=== PATIENT | male | born 1945 | race Hispanic/Latino ===

== ENCOUNTER 2020-01-05 09:07 | Inpatient (IN) | payer OTHER, MEDICARE ==
[~2020-01-05] VITALS: Ht 167.6 cm; Wt 77.1 kg
[2020-01-05 10:14] LABS: BASOPHILS % (AUTO) 0.2 % (0.0-5.0); EOSINOPHILS % (AUTO) 0.1 % (0.0-8.0); HEMATOCRIT 44.9 % (42-54); LYMPHOCYTES % (AUTO) 4.6 % (21.0-51.0); MEAN CORPUSCULAR HGB CONC 34.5 g/dL (32.0-36.0); MEAN CORPUSCULAR VOLUME 86.8 fL (79-99); MONOCYTES % (AUTO) 12.1 % (3.0-13.0); NEUTROPHILS % (AUTO) 81.8 % (40.0-77.0); PLATELET COUNT (AUTO) 166 K/uL (130-400); RED BLOOD CELL COUNT(AUTO) 5.17 MIL/uL (4.50-6.20); RED CELL DISTRIBUTION WIDTH 13.4 % (11.0-15.5); WHITE BLOOD COUNT (AUTO) 10.4 K/uL (4.8-10.8)
[2020-01-05 10:17] LABS: APPEARANCE,URINE Clear (CLEAR); BILIRUBIN,URINE Negative (NEGATIVE); COLOR,URINE Yellow (YELLOW); GLUCOSE, URINE (UA) Negative (NEGATIVE); KETONES,URINE Negative (NEGATIVE); LEUKOCYTE ESTERASE ,URINE Trace (NEGATIVE); NITRATE,URINE Negative (NEGATIVE); OCCULT BLOOD,URINE Moderate (NEGATIVE); PROTEIN,URINE Negative (NEGATIVE); UROBILINOGEN,URINE 0.2 mg/dL (0.2-1.0)
[2020-01-05 10:27] LABS: BACTERIA,URINE Rare /HPF (None Seen); SQUAMOUS EPITHELIAL CELL,UR Rare /HPF (0-2)
[2020-01-05 10:30] LABS: CREATININE 6.9 mg/dL (0.5-1.5); POTASSIUM 3.7 mmol/L (3.5-5.1)
[2020-01-05 10:36] LABS: BILIRUBIN,TOTAL 0.9 mg/dL (0.2-1.0); TOTAL PROTEIN, SERUM 7.3 g/dL (6.0-8.3)
[2020-01-05] MEDS ORDERED: CEFTRIAXONE SODIUM 1 GM ONE (11:03)
[2020-01-05] MEDS: SODIUM CHLORIDE 0.9% 1000ML 1,000 ML IV SCH (12:30)
[2020-01-05] MEDS ORDERED: HYDRALAZINE HCL 20 MG/ML VIAL IV PRN (12:30)
[2020-01-05] MEDS ORDERED: TAMSULOSIN HCL 0.4 MG CAP.ER.24H PO SCH (13:45)
[2020-01-05 13:53] LABS: CREATININE 4.2 mg/dL (0.5-1.5); POTASSIUM 3.6 mmol/L (3.5-5.1)
[2020-01-05 14:00] LABS: CREATININE,URINE RANDOM 130 mg/dL (30-135); SODIUM,URINE RANDOM 24 mmol/l (40-220)
[2020-01-05 14:06] LABS: MAGNESIUM 2.1 mg/dL (1.80-2.40); PHOSPHORUS 3.6 mg/dL (2.5-4.9); THYROID STIMULATING HORMONE 2.14 uIU/mL (0.36-3.74); URIC ACID 8.6 mg/dL (2.6-7.2)
[2020-01-05] MEDS ORDERED: POTASSIUM CHLORIDE 20 MEQ ERTAB PO SCH (15:00)
[2020-01-05] MEDS ORDERED: TAMSULOSIN HCL 0.4 MG CAP.ER.24H ONE (17:18)
[2020-01-05] MEDS ORDERED: POTASSIUM CHLORIDE 20 MEQ ERTAB PO ONE (17:19)
[2020-01-05 17:55] VITALS: BP 142/77
--- NOTE | 2020-01-05 18:00 | NUR ---
REPORT RECEIVED FROM ZACHERY SAHU (ED). PATIENT ADMITTED UNDER DR. WINTERS'S SERVICES FOR RENAL FAILURE AND URINARY RETENTION. CONSULTS FOR DR. ALEXA DRIVER AND DR. QUINTERO. PATIENT WAS SEEN BY DR. DRIVER IN ER AND (ER) DOCTOR SPOKE TO DR. QUINTERO REGARDING THE CASE. 16 FR PLACED WITH 2400ML OF OUTPUT. PATIENT STATES IS FEELING BETTER NOW.
[2020-01-05 20:00] VITALS: BP 145/77
[2020-01-06] VITALS: BP 136/79
[2020-01-06 03:56] VITALS: BP 134/73
[2020-01-06 06:54] LABS: CREATININE 1.3 mg/dL (0.5-1.5); MAGNESIUM 1.8 mg/dL (1.80-2.40); PHOSPHORUS 2.9 mg/dL (2.5-4.9)
[2020-01-06 08:00] VITALS: BP 139/83
[2020-01-06] MEDS ORDERED: ASPI-1197 PO (09:02)
[2020-01-06] MEDS: AMLODIPINE BESYLATE 5 MG TAB PO SCH ×2 (09:26→20:03)
[2020-01-06] MEDS: CEFTRIAXONE SODIUM 1 GM IVP SCH (09:26)
[2020-01-06 11:00] VITALS: BP 113/70
--- NOTE | 2020-01-06 11:00 | NUR ---
CONSULT PAGED DR. QUINTERO A REMINDER PATIENT WAS ADMITTED FOR URINARY RETENTION. NO ANSWER AT THIS TIME.
--- NOTE | 2020-01-06 13:50 | NUR ---
MD ISSAC QUINTERO ROUNDED, PATIENT TO FOLLOW UP IN OFFICE IN 2 WEEKS. PATIENT TO BE DISCHARGED WITH MCKINNON CATHETER IN PLACE. PATIENT TO USE LEG BAG DURING THE DAY AND MCKINNON BAG AT HS. PLEASE SUPPLY PATIENT WITH MCKINNON BAGS.
--- NOTE | 2020-01-06 15:13 | NUR ---
INITIAL SW met with patient. Patient lives with daughter, granddaughter and 3 small great grandchildren. Emergency contact is daughter, Rose Boyce, [phone]. No home services or DME. Patient is able to complete ADL's independently and drives. PCP is Dr. Arturo Doe. Pharmacy is [facility] in [place]. DCP is home. Addendum: 01/06/20 at 1515 by WALTER BOATENG SS Amended: Links added.
[2020-01-06 16:00] VITALS: BP 129/75
[2020-01-06 20:00] VITALS: BP 123/77
[2020-01-06] MEDS: SODIUM CHLORIDE 0.9% 1000ML 1,000 ML IV SCH (20:03)
--- NOTE | 2020-01-06 20:05 | NUR ---
MEDS SHIFT ASSESSMENT DONE, PLEASE REFER TO CHART. DUE MEDS ADMINISTERED, TOLERATED WELL. KEPT RESTED AND COMFORTABLE IN BED. CALL LIGHT WITHIN REACH. WILL MONITOR PT. Addendum: 01/06/20 at 2150 by BELINDA ROOT RN RN Amended: Links added.
--- NOTE | 2020-01-06 21:45 | NUR ---
ASSIST ASSISTED PT TO RESTROOM THEN BACK IN BED WITH MINIMAL ASSIST. PT ABLE TO HAVE A BM. NOTED HEMATURIA ON F/C URINE OUTPUT. NO BLOOD CLOTS NOTED. WILL MONITOR CLOSELY. Addendum: 01/06/20 at 2152 by BELINDA ROOT RN RN Amended: Links added.
[2020-01-07] VITALS (7 sets, daily range): BP systolic 125–140; BP diastolic 63–84
--- NOTE | 2020-01-07 01:57 | NUR ---
PAIN PT COMPLAINTS OF ABDOMINAL PAINS. MEDICATED WITH DILAUDID IV. KEPT RESTED AND COMFORTABLE. WILL RE-ASSESS PT. Addendum: 01/07/20 at 0158 by BELINDA ROOT RN RN ERROR ENTRY
--- NOTE | 2020-01-07 01:58 | NUR ---
ROUNDS PT FAIRLY ASLEEP WITH RESPIRATIONS EVEN AND UNLABORED. NO NOTED DISTRESS. KEPT UNDISTURBED FOR NOW. WILL MONITOR PT.
[2020-01-07] MEDS: SODIUM CHLORIDE 0.9% 1000ML 1,000 ML IV SCH ×3 (02:52→12:39)
--- NOTE | 2020-01-07 05:20 | NUR ---
ROUNDS PT RESTING WELL, NO CONCERNS VERBALIZED. PT'S URINE OUTPUT IS YELLOW AND IS CLEAR AT THIS TIME. KEPT COMFORTABLE IN BED. FOR MORE CARE.
[2020-01-07 06:09] LABS: POTASSIUM 3.7 mmol/L (3.5-5.1)
[2020-01-07] MEDS: AMLODIPINE BESYLATE 5 MG TAB PO SCH ×2 (08:08→20:13)
[2020-01-07] MEDS: CEFTRIAXONE SODIUM 1 GM IVP SCH (08:08)
[2020-01-07] MEDS: TAMSULOSIN HCL 0.4 MG CAP.ER.24H PO SCH (08:08)
[2020-01-07] MEDS ORDERED: POTASSIUM CHLORIDE 20 MEQ ERTAB PO SCH (09:45)
--- NOTE | 2020-01-07 10:15 | NUR ---
Notified Elie Cuenca NP and Nash Vo MD of urine culture results of gram negative rods. Pending sensitivity for antibiotic recommendation from physician.
[2020-01-07 10:54] LABS: BASOPHILS % (AUTO) 0.7 % (0.0-5.0); HEMATOCRIT 44.2 % (42-54); MEAN CORPUSCULAR HEMOGLOBIN 29.7 pg (27.0-33.0); MEAN CORPUSCULAR HGB CONC 32.4 g/dL (32.0-36.0); MEAN CORPUSCULAR VOLUME 91.7 fL (79-99); MONOCYTES % (AUTO) 13.1 % (3.0-13.0); NEUTROPHILS % (AUTO) 62.7 % (40.0-77.0); PLATELET COUNT (AUTO) 222 K/uL (130-400); RED BLOOD CELL COUNT(AUTO) 4.82 MIL/uL (4.50-6.20); RED CELL DISTRIBUTION WIDTH 13.9 % (11.0-15.5); WHITE BLOOD COUNT (AUTO) 6.9 K/uL (4.8-10.8)
--- NOTE | 2020-01-07 15:19 | NUR ---
RD NOTIFICATION - TRIGGER Pt admitted with Renal Failure, Urinary retention. Pt tolerating Renal Non Dialysis diet order with no report of GI distress. Pt reports Great appetite at 100%. Serum Ca level at 8.1, Alb 3.0, all other lab values WNL. Recommend Heart Healthy Diet Order RD to continue to monitor. Addendum: 01/07/20 at [address] Amended: Links added.
[2020-01-08] MEDS ORDERED: ATOR10TA69 PO (00:01)
[2020-01-08] MEDS ORDERED: LISI40TA4 PO (00:01)
[2020-01-08] MEDS ORDERED: AMLO-258 PO (00:01)
[2020-01-08] MEDS ORDERED: ATOR10 PO (00:01)
[2020-01-08] MEDS ORDERED: TAMS-1 PO (00:01)
--- NOTE | 2020-01-08 00:16 | NUR ---
Sugar CESARP returned the call within a few minutes, had been paged via answering service. Informed him of patient's elevated temperature of 100.1. Orders received to have blood cultures done, and order for Tylenol prn for elevated temp of 101. Patient made aware of new orders, ice packs placed in use. Patient verbalized understanding.
[2020-01-08] MEDS: SODIUM CHLORIDE 0.9% 1000ML 1,000 ML IV SCH ×3 (00:21→07:59)
[2020-01-08] MEDS ORDERED: ACETAMINOPHEN 325 MG TAB PO PRN (00:30)
[2020-01-08 03:42] VITALS: BP 146/85
[2020-01-08 05:54] LABS: BASOPHILS % (AUTO) 0.5 % (0.0-5.0); EOSINOPHILS % (AUTO) 6.8 % (0.0-8.0); HEMATOCRIT 42.4 % (42-54); LYMPHOCYTES % (AUTO) 13.2 % (21.0-51.0); MEAN CORPUSCULAR HEMOGLOBIN 29.3 pg (27.0-33.0); MEAN CORPUSCULAR HGB CONC 33.5 g/dL (32.0-36.0); MEAN CORPUSCULAR VOLUME 87.6 fL (79-99); MONOCYTES % (AUTO) 13.2 % (3.0-13.0); NEUTROPHILS % (AUTO) 64.8 % (40.0-77.0); PLATELET COUNT (AUTO) 214 K/uL (130-400); RED BLOOD CELL COUNT(AUTO) 4.84 MIL/uL (4.50-6.20); RED CELL DISTRIBUTION WIDTH 13.2 % (11.0-15.5); WHITE BLOOD COUNT (AUTO) 7.4 K/uL (4.8-10.8)
[2020-01-08 06:22] LABS: CREATININE 0.9 mg/dL (0.5-1.5); POTASSIUM 3.5 mmol/L (3.5-5.1)
[2020-01-08 07:34] VITALS: BP 145/77
[2020-01-08] MEDS: CEFTRIAXONE SODIUM 1 GM IVP SCH (07:58)
[2020-01-08] MEDS: TAMSULOSIN HCL 0.4 MG CAP.ER.24H PO SCH (07:58)
[2020-01-08] MEDS: AMLODIPINE BESYLATE 5 MG TAB PO SCH ×2 (07:58→20:16)
[2020-01-08 10:44] VITALS: BP 135/83
[2020-01-08 15:45] VITALS: BP 139/83
[2020-01-08 19:00] VITALS: BP 119/81
[2020-01-08 23:00] VITALS: BP 134/77
[2020-01-09 03:00] VITALS: BP 138/74
[2020-01-09 05:12] LABS: BASOPHILS % (AUTO) 0.3 % (0.0-5.0); EOSINOPHILS % (AUTO) 3.3 % (0.0-8.0); HEMATOCRIT 44.2 % (42-54); LYMPHOCYTES % (AUTO) 13.3 % (21.0-51.0); MEAN CORPUSCULAR HEMOGLOBIN 29.6 pg (27.0-33.0); MEAN CORPUSCULAR HGB CONC 33.9 g/dL (32.0-36.0); MEAN CORPUSCULAR VOLUME 87.4 fL (79-99); MONOCYTES % (AUTO) 13.3 % (3.0-13.0); NEUTROPHILS % (AUTO) 68.7 % (40.0-77.0); PLATELET COUNT (AUTO) 223 K/uL (130-400); RED BLOOD CELL COUNT(AUTO) 5.06 MIL/uL (4.50-6.20); RED CELL DISTRIBUTION WIDTH 13.3 % (11.0-15.5)
[2020-01-09 05:23] LABS: CREATININE 0.9 mg/dL (0.5-1.5); POTASSIUM 3.7 mmol/L (3.5-5.1)
[2020-01-09 07:40] VITALS: BP 123/78
[2020-01-09] MEDS: CEFTRIAXONE SODIUM 1 GM IVP SCH (09:23)
[2020-01-09] MEDS: TAMSULOSIN HCL 0.4 MG CAP.ER.24H PO SCH (09:23)
[2020-01-09] MEDS: AMLODIPINE BESYLATE 5 MG TAB PO SCH ×2 (09:23→20:56)
[2020-01-09 11:13] VITALS: BP 122/90
--- NOTE | 2020-01-09 13:36 | NUR ---
MIKE WILLIAM RECOMMMENDATIONS, EXPECT DC IF CLEARED Addendum: 01/09/20 at 1338 by JAMARI REARDON RN CM Amended: Links added.
[2020-01-09] MEDS: ZOSYN 3.375GM+NS 50ML 50 ML IV SCH ×2 (15:06→20:56)
[2020-01-09 15:23] VITALS: BP 125/77
[2020-01-09 21:19] VITALS: BP 147/79
[2020-01-10 03:40] LABS: BASOPHILS % (AUTO) 0.6 % (0.0-5.0); EOSINOPHILS % (AUTO) 4.7 % (0.0-8.0); HEMATOCRIT 43.1 % (42-54); LYMPHOCYTES % (AUTO) 15.6 % (21.0-51.0); MEAN CORPUSCULAR HEMOGLOBIN 29.3 pg (27.0-33.0); MEAN CORPUSCULAR HGB CONC 33.4 g/dL (32.0-36.0); MEAN CORPUSCULAR VOLUME 87.6 fL (79-99); MONOCYTES % (AUTO) 12.5 % (3.0-13.0); NEUTROPHILS % (AUTO) 64.5 % (40.0-77.0); PLATELET COUNT (AUTO) 246 K/uL (130-400); RED BLOOD CELL COUNT(AUTO) 4.92 MIL/uL (4.50-6.20); WHITE BLOOD COUNT (AUTO) 5.1 K/uL (4.8-10.8)
[2020-01-10 03:58] LABS: CREATININE 0.9 mg/dL (0.5-1.5); POTASSIUM 3.5 mmol/L (3.5-5.1)
[2020-01-10 04:00] VITALS: BP 124/72
[2020-01-10] MEDS: ZOSYN 3.375GM+NS 50ML 50 ML IV SCH ×2 (06:10→14:01)
[2020-01-10 07:39] VITALS: BP 133/75
[2020-01-10] MEDS: TAMSULOSIN HCL 0.4 MG CAP.ER.24H PO SCH (10:12)
[2020-01-10] MEDS: AMLODIPINE BESYLATE 5 MG TAB PO SCH (10:12)
[2020-01-10 10:48] VITALS: BP 96/67
--- NOTE | 2020-01-10 14:06 | NUR ---
DR. MARTINEZ IN TO SEE PT. STATES PT. CAN BE DISCHARGED, HAS WRITTEN RX. FOR ANTIBIOTICS.
--- NOTE | 2020-01-10 16:34 | NUR ---
DISCHARGED NOW USING TEACH BACK. RX. FOR LEVOFLOXIN AND AMOXICILLIN GIVEN. DISCHARGED WITH MCKINNON CATH IN PLACE AND GIVEN AND DEMONSTRATED USE OF LEG BAG. GIVEN A LG. DRAINAGE BAG AND [address] QUINTERO. FAMILY MEMBER IN ROOM AND ACKNOWLEDGED INST. STATES DAUGHTER IS A HEALTH PROVIDER AND ALSO KNOWS HOW TO CARE FOR FOLEYS. SALINE LOCK REMOVED WHEELED DOWN STAIRS FOR DC. NO C/O OR CONCERNS VOICED.APPTS. FOR FOLLOW UP CARE ALSO GIVEN. UNDERSTANDING OF ALL INST. VO DENA.DENA
== END 2020-01-10 17:00 | disposition home or self-care (01) | DRG 726 ==
LOC: EDH 09:07 → EDHIP 12:06 → 3AH 18:02
PROVIDERS: ADMIT Internal Medicine; ATTEND Internal Medicine
DX: N40.1 Benign prostatic hyperplasia with lower urinary tract symptoms (principal); N17.9 Acute kidney failure, unspecified; N39.0 Urinary tract infection, site not specified; N13.8 Other obstructive and reflux uropathy; N32.0 Bladder-neck obstruction; I10 Essential (primary) hypertension; E86.9 Volume depletion, unspecified; E78.00 Pure hypercholesterolemia, unspecified; H54.61 Unqualified visual loss, right eye, normal vision left eye; N41.9 Inflammatory disease of prostate, unspecified; R33.8 Other retention of urine; E87.8 Other disorders of electrolyte and fluid balance, not elsewhere classified; Z60.2 Problems related to living alone; B96.1 Klebsiella pneumoniae [K. pneumoniae] as the cause of diseases classified elsewhere; R53.81 Other malaise
CPT/HCPCS: 36415; 71046; 74176; 76770; 80048; 80053; 81001; 82150; 82570; 83690; 83735; 84100; 84145; 84156; 84300; 84443; 84484; 84550; 85025; 87040; 87077; 87088; 87186; 93005; G0378; J0696; J2543; J7030

== ENCOUNTER 2020-08-08 14:43 | Inpatient (IN) | payer OTHER, MEDICARE ==
[~2020-08-08] VITALS: Ht 167.6 cm; Wt 69.4 kg
[~2020-08-08 14:43] MED LIST: AMLO-258 PO; ASPI-1197 PO; ATOR10 PO; ATOR10TA69 PO; LISI40TA9 PO; TAMS-1 PO
[2020-08-08 15:14] LABS: ABG BASE EXCESS -10.6 mmol/L (-2.0-3.0); ABG OXYGEN SATURATION 84.3 % (95.0-99.0); ABG PCO2 21 mmHg (35-48)
[2020-08-08 15:18] LABS: BASOPHILS % (AUTO) 0.4 % (0.0-5.0); EOSINOPHILS % (AUTO) 0.1 % (0.0-8.0); HEMATOCRIT 49.6 % (42-54); MEAN CORPUSCULAR HEMOGLOBIN 28.9 pg (27.0-33.0); MEAN CORPUSCULAR HGB CONC 34.3 g/dL (32.0-36.0); MEAN CORPUSCULAR VOLUME 84.4 fL (79-99); MONOCYTES % (AUTO) 6.5 % (3.0-13.0); NEUTROPHILS % (AUTO) 85.8 % (40.0-77.0); PLATELET COUNT (AUTO) 348 K/uL (130-400); RED BLOOD CELL COUNT(AUTO) 5.88 MIL/uL (4.50-6.20); RED CELL DISTRIBUTION WIDTH 13.5 % (11.0-15.5); WHITE BLOOD COUNT (AUTO) 11.9 K/uL (4.8-10.8)
[2020-08-08 15:29] LABS: INR 1.41 (0.85-1.15); PROTHROMBIN TIME 14.6 SEC (9.6-11.6)
[2020-08-08 15:30] LABS: PARTIAL THROMBOPLASTIN TIME 27.1 SEC (26.3-35.5)
[2020-08-08 15:45] LABS: ALANINE AMINOTRANSFERASE 54 U/L (12-78); ALBUMIN 2.7 g/dL (3.5-5.0); ASPARTATE AMINOTRANSFERASE 46 U/L (10-37); BILIRUBIN,TOTAL 1.4 mg/dL (0.2-1.0); CARBON DIOXIDE 14 mmol/L (21-32); CHLORIDE 100 mmol/L (101-111); CREATINE KINASE, TOTAL 138 U/L (21-232); GLOMERULAR FILTR. RATE CALC 22 mL/min (>60); GLUCOSE,RANDOM 155 mg/dL (70-105); MYOGLOBIN 588 ng/mL (10-92); POTASSIUM 3.6 mmol/L (3.5-5.1); SODIUM SERUM 137 mmol/L (136-145); TOTAL PROTEIN, SERUM 8.5 g/dL (6.0-8.3); TROPONIN I < 0.04 ng/mL (0.00-0.06)
[2020-08-08 15:49] LABS: UREA NITROGEN, BLOOD 141 mg/dL (7-18)
[2020-08-08] MEDS ORDERED: AZITHROMYCIN 500MG+NS 250ML 250 ML IV ONE (16:03)
[2020-08-08] MEDS ORDERED: DEXAMETHASONE SOD PHOSPHATE 10MG/ML 1ML VIAL ONE (16:03)
[2020-08-08] MEDS ORDERED: CEFTRIAXONE 1G VIAL ONE (16:03)
[2020-08-08] MEDS ORDERED: DEXAMETHASONE SOD PHOSPHATE 4 MG/ML 1ML VIAL IVP SCH (17:45)
[2020-08-08] MEDS ORDERED: ERGOCALCIFEROL (VITAMIN D2) 50,000 UNIT CAPSULE PO ONE (17:45)
[2020-08-08] MEDS ORDERED: DOXYCYCLINE 100MG+NS 250ML IV SCH (17:45)
[2020-08-08] MEDS: CEFTRIAXONE 1G VIAL IVP SCH (17:45)
[2020-08-08] MEDS ORDERED: ERGOCALCIFEROL (VITAMIN D2) 50,000 UNIT CAPSULE ONE (18:15)
[2020-08-08] MEDS ORDERED: DOXYCYCLINE 100MG+NS 250ML 250 ML IV ONE (18:16)
[2020-08-08] MEDS ORDERED: ACETYLCYSTEINE 600 MG CAPSULE ONE (19:48)
[2020-08-08 20:27] LABS: APPEARANCE,URINE Clear (CLEAR); BILIRUBIN,URINE Negative (NEGATIVE); COLOR,URINE Yellow (YELLOW); GLUCOSE, URINE (UA) Negative (NEGATIVE); KETONES,URINE 15 mg/dL (NEGATIVE); LEUKOCYTE ESTERASE ,URINE Negative (NEGATIVE); NITRATE,URINE Negative (NEGATIVE); OCCULT BLOOD,URINE Small (NEGATIVE); PROTEIN,URINE POS 1+ mg/dL (NEGATIVE)
[2020-08-08 20:42] LABS: BACTERIA,URINE Few /HPF (None Seen); MUCUS,URINE Moderate LPF (None Seen); SQUAMOUS EPITHELIAL CELL,UR Few /HPF (0-2); WBC,URINE 0-1 /HPF (0-1)
[2020-08-08] MEDS ORDERED: 0.9% NACL 250ML 250 ML IV ONE (22:46)
[2020-08-09 05:03] LABS: BASOPHILS % (AUTO) 0.3 % (0.0-5.0); HEMATOCRIT 42.2 % (42-54); LYMPHOCYTES % (AUTO) 2.1 % (21.0-51.0); MEAN CORPUSCULAR HEMOGLOBIN 28.8 pg (27.0-33.0); MEAN CORPUSCULAR HGB CONC 34.4 g/dL (32.0-36.0); MEAN CORPUSCULAR VOLUME 83.9 fL (79-99); MONOCYTES % (AUTO) 3.3 % (3.0-13.0); NEUTROPHILS % (AUTO) 91.7 % (40.0-77.0); PLATELET COUNT (AUTO) 289 K/uL (130-400); RED BLOOD CELL COUNT(AUTO) 5.03 MIL/uL (4.50-6.20); RED CELL DISTRIBUTION WIDTH 13.6 % (11.0-15.5); WHITE BLOOD COUNT (AUTO) 7.6 K/uL (4.8-10.8)
[2020-08-09 05:25] LABS: ALBUMIN 2.3 g/dL (3.5-5.0); BILIRUBIN,TOTAL 0.9 mg/dL (0.2-1.0); CREATININE 1.9 mg/dL (0.5-1.5); CRP QUANTITATIVE 169.5 mg/L (0.00-9.0); POTASSIUM 3.7 mmol/L (3.5-5.1); TOTAL PROTEIN, SERUM 7.4 g/dL (6.0-8.3)
[2020-08-09] MEDS: CEFTRIAXONE 1G VIAL IVP SCH ×2 (05:45→16:44)
[2020-08-09] MEDS: DOXYCYCLINE 100MG+NS 250ML 250 ML IV SCH ×2 (06:00→16:45)
[2020-08-09] MEDS ORDERED: LACTATED RINGERS 1000ML 1,000 ML IV SCH (08:15)
[2020-08-09] MEDS ORDERED: ACETYLCYSTEINE 600 MG CAPSULE ONE (08:23)
[2020-08-09] MEDS ORDERED: ASCORBIC ACID 500 MG TAB ONE (08:23)
[2020-08-09] MEDS ORDERED: ENOXAPARIN SODIUM 40 MG/0.4 ML SYRINGE SQ ONE (08:24)
[2020-08-09] MEDS ORDERED: LACTATED RINGERS 1000ML 1,000 ML IV ONE (08:24)
[2020-08-09] MEDS ORDERED: FAMOTIDINE 20MG VIAL IV ONE (08:24)
[2020-08-09] MEDS: ACETYLCYSTEINE 600 MG CAPSULE PO SCH ×2 (08:24→09:00)
[2020-08-09] MEDS ORDERED: ZINC SULFATE 220 CAPSULE ONE (08:24)
[2020-08-09] MEDS ORDERED: ENOXAPARIN SODIUM 40 MG/0.4 ML SYRINGE SQ SCH (09:00)
[2020-08-09] MEDS: FAMOTIDINE 20MG VIAL IV SCH (09:00)
[2020-08-09] MEDS: ASCORBIC ACID 500 MG TAB PO SCH (09:00)
[2020-08-09] MEDS: ZINC SULFATE 220 CAPSULE PO SCH (09:00)
[2020-08-09] MEDS: ENOXAPARIN SODIUM 40 MG/0.4 ML SYRINGE SQ SCH ×2 (09:00→20:48)
[2020-08-09 13:00] VITALS: BP 164/81
[2020-08-09] MEDS ORDERED: OXYB10TA30 PO (14:06)
[2020-08-09] MEDS ORDERED: METO50TA18 PO (14:09)
[2020-08-09 20:00] VITALS: BP 115/63
[2020-08-09] MEDS ORDERED: COMPOUND IV REFRIGERATED 1 EACH IVSOLN MISC PRN (20:00)
[2020-08-09] MEDS: DEXAMETHASONE SOD PHOSPHATE 4 MG/ML 1ML VIAL IVP SCH (20:47)
[2020-08-09] MEDS ORDERED: LORAZEPAM 2 MG/ML 1 ML VIAL IVP PRN (21:30)
[2020-08-09 23:49] VITALS: BP 119/54
[2020-08-10 04:42] VITALS: BP 128/73
[2020-08-10 05:02] LABS: BASOPHILS % (AUTO) 0.3 % (0.0-5.0); HEMATOCRIT 43.6 % (42-54); LYMPHOCYTES % (AUTO) 1.9 % (21.0-51.0); MEAN CORPUSCULAR HEMOGLOBIN 28.6 pg (27.0-33.0); MEAN CORPUSCULAR HGB CONC 33.5 g/dL (32.0-36.0); MEAN CORPUSCULAR VOLUME 85.3 fL (79-99); MONOCYTES % (AUTO) 2.7 % (3.0-13.0); NEUTROPHILS % (AUTO) 90.9 % (40.0-77.0); PLATELET COUNT (AUTO) 327 K/uL (130-400); RED BLOOD CELL COUNT(AUTO) 5.11 MIL/uL (4.50-6.20); RED CELL DISTRIBUTION WIDTH 13.8 % (11.0-15.5); WHITE BLOOD COUNT (AUTO) 10.6 K/uL (4.8-10.8)
[2020-08-10] MEDS: DOXYCYCLINE 100MG+NS 250ML 250 ML IV SCH ×2 (05:13→17:41)
[2020-08-10] MEDS: CEFTRIAXONE 1G VIAL IVP SCH ×2 (05:13→17:40)
[2020-08-10 05:20] LABS: ALBUMIN 2.2 g/dL (3.5-5.0); BILIRUBIN,TOTAL 0.7 mg/dL (0.2-1.0); CREATININE 1.4 mg/dL (0.5-1.5); CRP QUANTITATIVE 87.8 mg/L (0.00-9.0); MAGNESIUM 2.7 mg/dL (1.80-2.40); PHOSPHORUS 2.8 mg/dL (2.5-4.9); POTASSIUM 3.7 mmol/L (3.5-5.1); TOTAL PROTEIN, SERUM 7.2 g/dL (6.0-8.3)
[2020-08-10] MEDS: FAMOTIDINE 20MG VIAL IV SCH (08:53)
[2020-08-10] MEDS: CLONAZEPAM 1MG TAB PO SCH ×2 (08:55→20:06)
[2020-08-10] MEDS: DEXAMETHASONE SOD PHOSPHATE 4 MG/ML 1ML VIAL IVP SCH ×2 (08:55→20:06)
[2020-08-10] MEDS: ENOXAPARIN SODIUM 40 MG/0.4 ML SYRINGE SQ SCH ×2 (08:56→20:09)
[2020-08-10] MEDS: ASCORBIC ACID 500 MG TAB PO SCH (08:56)
[2020-08-10] MEDS: ZINC SULFATE 220 CAPSULE PO SCH (08:56)
[2020-08-10] MEDS: M.V.I. IV [ADULT] 10 ML, FOLIC ACID 1 MG, THIAMINE HCL 100 MG in 0.9%NACL 1000ML 1,000 ML IV SCH (13:00)
[2020-08-10 16:00] VITALS: BP 125/75
[2020-08-10] MEDS: ATORVASTATIN 10 MG TABLET PO SCH (20:06)
[2020-08-10] MEDS: OXYBUTYNIN 5 MG TAB.SR.24H PO SCH (20:09)
[2020-08-10 22:46] VITALS: BP 125/73
[2020-08-11] VITALS (7 sets, daily range): BP systolic 124–137; BP diastolic 74–88
[2020-08-11 05:06] LABS: BASOPHILS % (AUTO) 0.4 % (0.0-5.0); HEMATOCRIT 44.4 % (42-54); MEAN CORPUSCULAR HEMOGLOBIN 28.9 pg (27.0-33.0); MEAN CORPUSCULAR HGB CONC 33.6 g/dL (32.0-36.0); MONOCYTES % (AUTO) 4.7 % (3.0-13.0); NEUTROPHILS % (AUTO) 89.3 % (40.0-77.0); PLATELET COUNT (AUTO) 300 K/uL (130-400); RED BLOOD CELL COUNT(AUTO) 5.16 MIL/uL (4.50-6.20); RED CELL DISTRIBUTION WIDTH 13.8 % (11.0-15.5); WHITE BLOOD COUNT (AUTO) 10.6 K/uL (4.8-10.8)
[2020-08-11] MEDS: DOXYCYCLINE 100MG+NS 250ML 250 ML IV SCH ×2 (05:29→17:42)
[2020-08-11] MEDS: CEFTRIAXONE 1G VIAL IVP SCH ×2 (05:30→17:38)
[2020-08-11 05:51] LABS: ALBUMIN 2.2 g/dL (3.5-5.0); BILIRUBIN,TOTAL 0.5 mg/dL (0.2-1.0); CREATININE 1.2 mg/dL (0.5-1.5); CRP QUANTITATIVE 41.6 mg/L (0.00-9.0); POTASSIUM 4.1 mmol/L (3.5-5.1); TOTAL PROTEIN, SERUM 6.7 g/dL (6.0-8.3)
[2020-08-11] MEDS: M.V.I. IV [ADULT] 10 ML, FOLIC ACID 1 MG, THIAMINE HCL 100 MG in 0.9%NACL 1000ML 1,000 ML IV SCH (09:00)
[2020-08-11] MEDS: FAMOTIDINE 20MG VIAL IV SCH (09:23)
[2020-08-11] MEDS: DEXAMETHASONE SOD PHOSPHATE 4 MG/ML 1ML VIAL IVP SCH ×2 (09:24→20:32)
[2020-08-11] MEDS: TAMSULOSIN HCL 0.4 MG CAP.ER.24H PO SCH (09:26)
[2020-08-11] MEDS: ZINC SULFATE 220 CAPSULE PO SCH (09:26)
[2020-08-11] MEDS: CLONAZEPAM 1MG TAB PO SCH ×2 (09:26→20:31)
[2020-08-11] MEDS: ENOXAPARIN SODIUM 40 MG/0.4 ML SYRINGE SQ SCH ×2 (09:26→20:52)
[2020-08-11] MEDS: ASCORBIC ACID 500 MG TAB PO SCH (09:27)
[2020-08-11] MEDS ORDERED: PHARMACY COMMUNICATION**REMDESIVIR ORDER MISC SCH (15:00)
[2020-08-11] MEDS ORDERED: COMPOUND IV REFRIGERATED 1 EACH IVSOLN MISC PRN (17:30)
[2020-08-11 17:43] LABS: BASOPHILS % (AUTO) 0.3 % (0.0-5.0); HEMATOCRIT 47.3 % (42-54); MEAN CORPUSCULAR HEMOGLOBIN 27.9 pg (27.0-33.0); MEAN CORPUSCULAR HGB CONC 32.8 g/dL (32.0-36.0); MEAN CORPUSCULAR VOLUME 85.2 fL (79-99); MONOCYTES % (AUTO) 5.2 % (3.0-13.0); PLATELET COUNT (AUTO) 320 K/uL (130-400); RED BLOOD CELL COUNT(AUTO) 5.55 MIL/uL (4.50-6.20); RED CELL DISTRIBUTION WIDTH 13.9 % (11.0-15.5); WHITE BLOOD COUNT (AUTO) 9.5 K/uL (4.8-10.8)
[2020-08-11] MEDS ORDERED: REMDESIVIR (EUA) 520 200 MG in 0.9% NACL 250ML 250 ML IV SCH (18:00)
[2020-08-11] MEDS ORDERED: 0.9% NACL 250ML 250 ML IV ONE (20:26)
[2020-08-11] MEDS: ATORVASTATIN 10 MG TABLET PO SCH (20:32)
[2020-08-11] MEDS: OXYBUTYNIN 5 MG TAB.SR.24H PO SCH (20:33)
[2020-08-12] VITALS: BP 132/82
[2020-08-12 04:00] VITALS: BP 123/71
[2020-08-12 04:58] LABS: HEMATOCRIT 44.8 % (42-54); MEAN CORPUSCULAR HEMOGLOBIN 28.4 pg (27.0-33.0); MEAN CORPUSCULAR HGB CONC 32.8 g/dL (32.0-36.0); MEAN CORPUSCULAR VOLUME 86.5 fL (79-99); RED BLOOD CELL COUNT(AUTO) 5.18 MIL/uL (4.50-6.20); RED CELL DISTRIBUTION WIDTH 13.9 % (11.0-15.5); WHITE BLOOD COUNT (AUTO) 9.2 K/uL (4.8-10.8)
[2020-08-12 05:12] LABS: POTASSIUM 4.2 mmol/L (3.5-5.1)
[2020-08-12] MEDS: PHARMACY COMMUNICATION MISC SCH (06:00)
[2020-08-12] MEDS: DOXYCYCLINE 100MG+NS 250ML 250 ML IV SCH ×2 (06:33→17:15)
[2020-08-12] MEDS: CEFTRIAXONE 1G VIAL IVP SCH ×2 (06:33→17:15)
[2020-08-12 08:00] VITALS: BP 149/86
[2020-08-12] MEDS: CLONAZEPAM 1MG TAB PO SCH ×2 (08:11→21:14)
[2020-08-12] MEDS: TAMSULOSIN HCL 0.4 MG CAP.ER.24H PO SCH (08:12)
[2020-08-12] MEDS: ZINC SULFATE 220 CAPSULE PO SCH (08:12)
[2020-08-12] MEDS: ASCORBIC ACID 500 MG TAB PO SCH (08:12)
[2020-08-12] MEDS: DEXAMETHASONE SOD PHOSPHATE 4 MG/ML 1ML VIAL IVP SCH ×2 (08:13→21:15)
[2020-08-12] MEDS: ENOXAPARIN SODIUM 40 MG/0.4 ML SYRINGE SQ SCH ×2 (08:13→21:18)
[2020-08-12] MEDS: FAMOTIDINE 20MG VIAL IV SCH (08:13)
[2020-08-12] MEDS: M.V.I. IV [ADULT] 10 ML, FOLIC ACID 1 MG, THIAMINE HCL 100 MG in 0.9%NACL 1000ML 1,000 ML IV SCH (10:03)
[2020-08-12 12:00] VITALS: BP 150/83
[2020-08-12 18:36] VITALS: BP 150/89
[2020-08-12 19:00] VITALS: BP 155/89
[2020-08-12] MEDS ORDERED: DEXTROSE 5%-WATER 1,000 ML IV SCH (20:15)
[2020-08-12] MEDS: ATORVASTATIN 10 MG TABLET PO SCH (21:14)
[2020-08-12] MEDS: OXYBUTYNIN 5 MG TAB.SR.24H PO SCH (21:14)
[2020-08-12] MEDS: REMDESIVIR (EUA) 520 100 MG in 0.9% NACL 250ML 250 ML IV SCH (21:15)
[2020-08-13] VITALS: BP 161/86
[2020-08-13 04:00] VITALS: BP_SYST 124; BP_SYST 136; BP_SYST 97; BP_DIAS 55; BP_DIAS 76; BP_DIAS 77
[2020-08-13 06:12] LABS: BASOPHILS % (AUTO) 0.4 % (0.0-5.0); HEMATOCRIT 48.4 % (42-54); LYMPHOCYTES % (AUTO) 2.4 % (21.0-51.0); MEAN CORPUSCULAR HEMOGLOBIN 28.5 pg (27.0-33.0); MEAN CORPUSCULAR HGB CONC 32.6 g/dL (32.0-36.0); MEAN CORPUSCULAR VOLUME 87.2 fL (79-99); MONOCYTES % (AUTO) 4.5 % (3.0-13.0); NEUTROPHILS % (AUTO) 87.1 % (40.0-77.0); PLATELET COUNT (AUTO) 266 K/uL (130-400); RED BLOOD CELL COUNT(AUTO) 5.55 MIL/uL (4.50-6.20); RED CELL DISTRIBUTION WIDTH 14.1 % (11.0-15.5)
[2020-08-13] MEDS: DOXYCYCLINE 100MG+NS 250ML 250 ML IV SCH ×2 (06:16→16:18)
[2020-08-13] MEDS: CEFTRIAXONE 1G VIAL IVP SCH ×2 (06:16→16:18)
[2020-08-13] MEDS: PHARMACY COMMUNICATION MISC SCH (06:17)
[2020-08-13 06:41] LABS: ALBUMIN 2.2 g/dL (3.5-5.0); BILIRUBIN,TOTAL 0.5 mg/dL (0.2-1.0); CRP QUANTITATIVE 28.7 mg/L (0.00-9.0); POTASSIUM 4.4 mmol/L (3.5-5.1); TOTAL PROTEIN, SERUM 6.4 g/dL (6.0-8.3)
[2020-08-13 08:00] VITALS: BP 132/80
[2020-08-13] MEDS: CLONAZEPAM 1MG TAB PO SCH ×2 (09:16→21:27)
[2020-08-13] MEDS: ASCORBIC ACID 500 MG TAB PO SCH (09:16)
[2020-08-13] MEDS: TAMSULOSIN HCL 0.4 MG CAP.ER.24H PO SCH (09:16)
[2020-08-13] MEDS: FAMOTIDINE 20MG VIAL IV SCH (09:16)
[2020-08-13] MEDS: DEXAMETHASONE SOD PHOSPHATE 4 MG/ML 1ML VIAL IVP SCH ×2 (09:17→21:46)
[2020-08-13] MEDS: ENOXAPARIN SODIUM 40 MG/0.4 ML SYRINGE SQ SCH ×2 (09:17→21:48)
[2020-08-13] MEDS: ZINC SULFATE 220 CAPSULE PO SCH (09:17)
[2020-08-13] MEDS: M.V.I. IV [ADULT] 10 ML, FOLIC ACID 1 MG, THIAMINE HCL 100 MG in 0.9%NACL 1000ML 1,000 ML IV SCH (10:15)
[2020-08-13 14:35] VITALS: BP 135/76
[2020-08-13] MEDS: LACTULOSE 20 GM/30 ML UDCUP PO PRN (18:19)
[2020-08-13 20:00] VITALS: BP 140/76
[2020-08-13] MEDS: OXYBUTYNIN 5 MG TAB.SR.24H PO SCH (21:25)
[2020-08-13] MEDS: ATORVASTATIN 10 MG TABLET PO SCH (21:27)
[2020-08-13] MEDS: REMDESIVIR (EUA) 520 100 MG in 0.9% NACL 250ML 250 ML IV SCH (21:49)
[2020-08-14 00:33] VITALS: BP 150/59
[2020-08-14 04:09] VITALS: BP 124/91
[2020-08-14 05:29] LABS: BASOPHILS % (AUTO) 0.3 % (0.0-5.0); HEMATOCRIT 45.5 % (42-54); LYMPHOCYTES % (AUTO) 1.4 % (21.0-51.0); MEAN CORPUSCULAR HEMOGLOBIN 28.8 pg (27.0-33.0); MEAN CORPUSCULAR HGB CONC 33.4 g/dL (32.0-36.0); MEAN CORPUSCULAR VOLUME 86.2 fL (79-99); MONOCYTES % (AUTO) 3.2 % (3.0-13.0); NEUTROPHILS % (AUTO) 90.7 % (40.0-77.0); PLATELET COUNT (AUTO) 238 K/uL (130-400); RED BLOOD CELL COUNT(AUTO) 5.28 MIL/uL (4.50-6.20); RED CELL DISTRIBUTION WIDTH 13.7 % (11.0-15.5); WHITE BLOOD COUNT (AUTO) 9.4 K/uL (4.8-10.8)
[2020-08-14 05:51] LABS: ALBUMIN 2.1 g/dL (3.5-5.0); BILIRUBIN,TOTAL 0.7 mg/dL (0.2-1.0); CREATININE 0.9 mg/dL (0.5-1.5); CRP QUANTITATIVE 26.5 mg/L (0.00-9.0); POTASSIUM 3.8 mmol/L (3.5-5.1); TOTAL PROTEIN, SERUM 6.3 g/dL (6.0-8.3)
[2020-08-14] MEDS: CEFTRIAXONE 1G VIAL IVP SCH ×2 (06:00→17:32)
[2020-08-14] MEDS: PHARMACY COMMUNICATION MISC SCH (06:00)
[2020-08-14] MEDS: DOXYCYCLINE 100MG+NS 250ML 250 ML IV SCH ×2 (06:00→17:32)
[2020-08-14] MEDS: LORAZEPAM 2 MG/ML 1 ML VIAL IVP PRN (07:42)
[2020-08-14 08:25] LABS: ABG BASE EXCESS -0.1 mmol/L (-2.0-3.0); ABG HCO3 23.1 mmol/L (21.0-28.0); ABG OXYGEN SATURATION 94.5 % (95.0-99.0); ABG PCO2 34 mmHg (35-48)
[2020-08-14 09:13] VITALS: BP 124/91
[2020-08-14] MEDS: CHLORDIAZEPOXIDE HCL 25 MG CAP PO PRN ×4 (09:32→18:14)
[2020-08-14] MEDS: ZINC SULFATE 220 CAPSULE PO SCH (09:32)
[2020-08-14] MEDS: ASCORBIC ACID 500 MG TAB PO SCH (09:32)
[2020-08-14] MEDS: TAMSULOSIN HCL 0.4 MG CAP.ER.24H PO SCH (09:32)
[2020-08-14] MEDS: CLONAZEPAM 1MG TAB PO SCH ×2 (09:32→21:00)
[2020-08-14] MEDS: DEXAMETHASONE SOD PHOSPHATE 4 MG/ML 1ML VIAL IVP SCH ×2 (09:32→22:21)
[2020-08-14] MEDS: FAMOTIDINE 20MG VIAL IV SCH (09:32)
[2020-08-14] MEDS: ENOXAPARIN SODIUM 40 MG/0.4 ML SYRINGE SQ SCH ×2 (09:33→22:22)
[2020-08-14] MEDS: M.V.I. IV [ADULT] 10 ML, FOLIC ACID 1 MG, THIAMINE HCL 100 MG in 0.9%NACL 1000ML 1,000 ML IV SCH (11:00)
[2020-08-14 11:06] VITALS: BP 138/77
[2020-08-14 20:00] VITALS: BP 145/82
[2020-08-14] MEDS: OXYBUTYNIN 5 MG TAB.SR.24H PO SCH (21:00)
[2020-08-14] MEDS: ATORVASTATIN 10 MG TABLET PO SCH (22:21)
[2020-08-14] MEDS: REMDESIVIR (EUA) 520 100 MG in 0.9% NACL 250ML 250 ML IV SCH (22:22)
[2020-08-14 23:45] LABS: MAGNESIUM 1.7 mg/dL (1.80-2.40); POTASSIUM 3.6 mmol/L (3.5-5.1); T4 (THYROXINE) 5.9 ug/dL (4.7-13.3); THYROID STIMULATING HORMONE 0.31 uIU/mL (0.36-3.74)
[2020-08-15] VITALS (7 sets, daily range): BP systolic 126–152; BP diastolic 54–100
[2020-08-15] MEDS ORDERED: MAGNESIUM 2GM PREMIX 50ML 50 ML IV ONE (01:15)
[2020-08-15] MEDS ORDERED: POTASSIUM CHLORIDE 20MEQ/100ML 100 ML IV PRN (01:15)
[2020-08-15] MEDS: DOXYCYCLINE 100MG+NS 250ML 250 ML IV SCH ×2 (05:17→17:13)
[2020-08-15] MEDS: CEFTRIAXONE 1G VIAL IVP SCH (05:17)
[2020-08-15 05:42] LABS: BASOPHILS % (AUTO) 0.2 % (0.0-5.0); HEMATOCRIT 44.9 % (42-54); LYMPHOCYTES % (AUTO) 2.1 % (21.0-51.0); MEAN CORPUSCULAR HEMOGLOBIN 28.3 pg (27.0-33.0); MEAN CORPUSCULAR HGB CONC 33.2 g/dL (32.0-36.0); MEAN CORPUSCULAR VOLUME 85.2 fL (79-99); MONOCYTES % (AUTO) 3.8 % (3.0-13.0); NEUTROPHILS % (AUTO) 89.6 % (40.0-77.0); PLATELET COUNT (AUTO) 225 K/uL (130-400); RED BLOOD CELL COUNT(AUTO) 5.27 MIL/uL (4.50-6.20); RED CELL DISTRIBUTION WIDTH 13.3 % (11.0-15.5); WHITE BLOOD COUNT (AUTO) 8.1 K/uL (4.8-10.8)
[2020-08-15] MEDS: PHARMACY COMMUNICATION MISC SCH (06:00)
[2020-08-15] MEDS: INSULIN HUMULIN R 100 UNIT/ML 3ML SQ SCH ×4 (06:08→21:00)
[2020-08-15 06:25] LABS: ALBUMIN 1.9 g/dL (3.5-5.0); BILIRUBIN,TOTAL 0.6 mg/dL (0.2-1.0); CREATININE 0.8 mg/dL (0.5-1.5); CRP QUANTITATIVE 20.6 mg/L (0.00-9.0); PHOSPHORUS 2.7 mg/dL (2.5-4.9); POTASSIUM 3.8 mmol/L (3.5-5.1); TOTAL PROTEIN, SERUM 5.7 g/dL (6.0-8.3)
[2020-08-15] MEDS: ZINC SULFATE 220 CAPSULE PO SCH (10:28)
[2020-08-15] MEDS: DEXAMETHASONE SOD PHOSPHATE 4 MG/ML 1ML VIAL IVP SCH ×2 (10:28→20:09)
[2020-08-15] MEDS: FAMOTIDINE 20MG VIAL IV SCH (10:28)
[2020-08-15] MEDS: CHLORDIAZEPOXIDE HCL 25 MG CAP PO PRN ×3 (10:28→22:25)
[2020-08-15] MEDS: TAMSULOSIN HCL 0.4 MG CAP.ER.24H PO SCH (10:29)
[2020-08-15] MEDS: ENOXAPARIN SODIUM 40 MG/0.4 ML SYRINGE SQ SCH ×2 (10:29→20:43)
[2020-08-15] MEDS: CLONAZEPAM 1MG TAB PO SCH ×2 (10:29→20:10)
[2020-08-15] MEDS: ASCORBIC ACID 500 MG TAB PO SCH (10:29)
[2020-08-15] MEDS: REMDESIVIR (EUA) 520 100 MG in 0.9% NACL 250ML 250 ML IV SCH (20:09)
[2020-08-15] MEDS: ATORVASTATIN 10 MG TABLET PO SCH (20:09)
[2020-08-15] MEDS: OXYBUTYNIN 5 MG TAB.SR.24H PO SCH (20:43)
[2020-08-16 03:25] VITALS: BP 140/76
[2020-08-16] MEDS: DOXYCYCLINE 100MG+NS 250ML 250 ML IV SCH ×2 (05:29→18:08)
[2020-08-16] MEDS: PHARMACY COMMUNICATION MISC SCH (05:40)
[2020-08-16 06:02] LABS: BASOPHILS % (AUTO) 0.3 % (0.0-5.0); HEMATOCRIT 44.1 % (42-54); LYMPHOCYTES % (AUTO) 2.4 % (21.0-51.0); MEAN CORPUSCULAR HEMOGLOBIN 28.2 pg (27.0-33.0); MEAN CORPUSCULAR HGB CONC 32.7 g/dL (32.0-36.0); MEAN CORPUSCULAR VOLUME 86.3 fL (79-99); MONOCYTES % (AUTO) 6.1 % (3.0-13.0); NEUTROPHILS % (AUTO) 87.7 % (40.0-77.0); PLATELET COUNT (AUTO) 200 K/uL (130-400); RED BLOOD CELL COUNT(AUTO) 5.11 MIL/uL (4.50-6.20); RED CELL DISTRIBUTION WIDTH 13.6 % (11.0-15.5); WHITE BLOOD COUNT (AUTO) 6.8 K/uL (4.8-10.8)
[2020-08-16] MEDS: INSULIN HUMULIN R 100 UNIT/ML 3ML SQ SCH ×4 (06:23→21:00)
[2020-08-16 06:28] LABS: ALBUMIN 1.8 g/dL (3.5-5.0); BILIRUBIN,TOTAL 0.5 mg/dL (0.2-1.0); CREATININE 0.8 mg/dL (0.5-1.5); CRP QUANTITATIVE 13.1 mg/L (0.00-9.0); POTASSIUM 4.4 mmol/L (3.5-5.1); TOTAL PROTEIN, SERUM 5.3 g/dL (6.0-8.3)
[2020-08-16 08:00] VITALS: BP 155/79
[2020-08-16] MEDS: ENOXAPARIN SODIUM 40 MG/0.4 ML SYRINGE SQ SCH ×2 (08:39→20:40)
[2020-08-16] MEDS: TAMSULOSIN HCL 0.4 MG CAP.ER.24H PO SCH (08:39)
[2020-08-16] MEDS: CLONAZEPAM 1MG TAB PO SCH ×2 (08:39→20:41)
[2020-08-16] MEDS: CHLORDIAZEPOXIDE HCL 25 MG CAP PO PRN ×2 (08:39→17:15)
[2020-08-16] MEDS: ZINC SULFATE 220 CAPSULE PO SCH (08:39)
[2020-08-16] MEDS: ASCORBIC ACID 500 MG TAB PO SCH (08:39)
[2020-08-16] MEDS: FAMOTIDINE 20MG VIAL IV SCH (08:40)
[2020-08-16] MEDS: DEXAMETHASONE SOD PHOSPHATE 4 MG/ML 1ML VIAL IVP SCH ×2 (08:40→20:40)
[2020-08-16 12:00] VITALS: BP 152/63
[2020-08-16] MEDS: LORAZEPAM 2 MG/ML 1 ML VIAL IVP PRN (12:44)
[2020-08-16 17:38] VITALS: BP 119/71
[2020-08-16 19:08] VITALS: BP 139/87
[2020-08-16] MEDS: ATORVASTATIN 10 MG TABLET PO SCH (20:40)
[2020-08-16] MEDS: OXYBUTYNIN 5 MG TAB.SR.24H PO SCH (20:40)
[2020-08-16 23:08] VITALS: BP 164/71
[2020-08-17] VITALS (7 sets, daily range): BP systolic 126–142; BP diastolic 54–87
[2020-08-17] MEDS: LACTULOSE 20 GM/30 ML UDCUP PO PRN ×2 (01:08→11:35)
[2020-08-17 03:33] LABS: ABG BASE EXCESS -0.2 mmol/L (-2.0-3.0); ABG HCO3 23.6 mmol/L (21.0-28.0); ABG OXYGEN SATURATION 92.2 % (95.0-99.0); ABG PCO2 36 mmHg (35-48)
[2020-08-17] MEDS: DOXYCYCLINE 100MG+NS 250ML 250 ML IV SCH ×2 (05:06→17:35)
[2020-08-17] MEDS: INSULIN HUMULIN R 100 UNIT/ML 3ML SQ SCH ×4 (05:17→19:54)
[2020-08-17 06:12] LABS: BASOPHILS % (AUTO) 0.3 % (0.0-5.0); HEMATOCRIT 45.4 % (42-54); LYMPHOCYTES % (AUTO) 1.9 % (21.0-51.0); MEAN CORPUSCULAR HEMOGLOBIN 28.5 pg (27.0-33.0); MEAN CORPUSCULAR HGB CONC 32.8 g/dL (32.0-36.0); MONOCYTES % (AUTO) 4.8 % (3.0-13.0); NEUTROPHILS % (AUTO) 90.7 % (40.0-77.0); PLATELET COUNT (AUTO) 176 K/uL (130-400); RED BLOOD CELL COUNT(AUTO) 5.22 MIL/uL (4.50-6.20); RED CELL DISTRIBUTION WIDTH 13.3 % (11.0-15.5); WHITE BLOOD COUNT (AUTO) 7.5 K/uL (4.8-10.8)
[2020-08-17 06:21] LABS: BILIRUBIN,TOTAL 0.8 mg/dL (0.2-1.0); CREATININE 0.8 mg/dL (0.5-1.5); CRP QUANTITATIVE 11.6 mg/L (0.00-9.0); POTASSIUM 4.1 mmol/L (3.5-5.1); TOTAL PROTEIN, SERUM 5.6 g/dL (6.0-8.3)
[2020-08-17] MEDS: TAMSULOSIN HCL 0.4 MG CAP.ER.24H PO SCH (09:00)
[2020-08-17] MEDS: FAMOTIDINE 20MG VIAL IV SCH (11:35)
[2020-08-17] MEDS: ASCORBIC ACID 500 MG TAB PO SCH (11:35)
[2020-08-17] MEDS: ZINC SULFATE 220 CAPSULE PO SCH (11:35)
[2020-08-17] MEDS: FOLIC ACID 1 MG TABLET PO SCH (11:35)
[2020-08-17] MEDS: CLONAZEPAM 1MG TAB PO SCH (11:36)
[2020-08-17] MEDS: DEXAMETHASONE SOD PHOSPHATE 4 MG/ML 1ML VIAL IVP SCH ×2 (11:36→19:52)
[2020-08-17] MEDS: ENOXAPARIN SODIUM 40 MG/0.4 ML SYRINGE SQ SCH ×2 (11:37→19:53)
[2020-08-17] MEDS: THIAMINE HCL 100 MG/ML 2ML VIAL IM SCH (11:37)
[2020-08-17] MEDS: ATORVASTATIN 10 MG TABLET PO SCH (19:53)
[2020-08-17] MEDS: OXYBUTYNIN 5 MG TAB.SR.24H PO SCH (19:53)
[2020-08-17] MEDS: CHLORDIAZEPOXIDE HCL 25 MG CAP PO PRN (21:09)
[2020-08-18 03:32] VITALS: BP 139/72
[2020-08-18] MEDS: DOXYCYCLINE 100MG+NS 250ML 250 ML IV SCH ×2 (05:23→16:07)
[2020-08-18 06:04] LABS: BASOPHILS % (AUTO) 0.3 % (0.0-5.0); HEMATOCRIT 43.2 % (42-54); LYMPHOCYTES % (AUTO) 1.7 % (21.0-51.0); MEAN CORPUSCULAR HEMOGLOBIN 28.5 pg (27.0-33.0); MEAN CORPUSCULAR HGB CONC 32.9 g/dL (32.0-36.0); MEAN CORPUSCULAR VOLUME 86.6 fL (79-99); MONOCYTES % (AUTO) 3.9 % (3.0-13.0); NEUTROPHILS % (AUTO) 92.1 % (40.0-77.0); PLATELET COUNT (AUTO) 164 K/uL (130-400); RED BLOOD CELL COUNT(AUTO) 4.99 MIL/uL (4.50-6.20); RED CELL DISTRIBUTION WIDTH 13.3 % (11.0-15.5); WHITE BLOOD COUNT (AUTO) 7.7 K/uL (4.8-10.8)
[2020-08-18] MEDS: INSULIN HUMULIN R 100 UNIT/ML 3ML SQ SCH ×4 (06:32→21:00)
[2020-08-18 06:59] LABS: ALBUMIN 1.8 g/dL (3.5-5.0); BILIRUBIN,TOTAL 0.8 mg/dL (0.2-1.0); CREATININE 0.7 mg/dL (0.5-1.5); CRP QUANTITATIVE 10.2 mg/L (0.00-9.0); TOTAL PROTEIN, SERUM 5.3 g/dL (6.0-8.3)
[2020-08-18 10:38] VITALS: BP 122/71
[2020-08-18] MEDS: FAMOTIDINE 20MG VIAL IV SCH (11:19)
[2020-08-18] MEDS: DEXAMETHASONE SOD PHOSPHATE 4 MG/ML 1ML VIAL IVP SCH ×2 (11:20→21:17)
[2020-08-18] MEDS: THIAMINE HCL 100 MG/ML 2ML VIAL IM SCH (11:20)
[2020-08-18] MEDS: ENOXAPARIN SODIUM 40 MG/0.4 ML SYRINGE SQ SCH ×2 (11:21→21:17)
[2020-08-18] MEDS: ASCORBIC ACID 500 MG TAB PO SCH (12:21)
[2020-08-18] MEDS: TAMSULOSIN HCL 0.4 MG CAP.ER.24H PO SCH (12:21)
[2020-08-18] MEDS: ZINC SULFATE 220 CAPSULE PO SCH (12:21)
[2020-08-18] MEDS: FOLIC ACID 1 MG TABLET PO SCH (12:21)
[2020-08-18 12:29] VITALS: BP 143/82
[2020-08-18 18:22] VITALS: BP 135/84
[2020-08-18 19:55] VITALS: BP 119/88
[2020-08-18] MEDS: ATORVASTATIN 10 MG TABLET PO SCH (21:17)
[2020-08-18] MEDS: OXYBUTYNIN 5 MG TAB.SR.24H PO SCH (21:17)
[2020-08-18 23:32] VITALS: BP 159/80
[2020-08-19 03:43] VITALS: BP 147/78
[2020-08-19 06:20] LABS: HEMATOCRIT 50.6 % (42-54); MEAN CORPUSCULAR HEMOGLOBIN 28.4 pg (27.0-33.0); MEAN CORPUSCULAR HGB CONC 32.6 g/dL (32.0-36.0); MEAN CORPUSCULAR VOLUME 86.9 fL (79-99); RED BLOOD CELL COUNT(AUTO) 5.82 MIL/uL (4.50-6.20); RED CELL DISTRIBUTION WIDTH 13.2 % (11.0-15.5); WHITE BLOOD COUNT (AUTO) 8.1 K/uL (4.8-10.8)
[2020-08-19 06:32] LABS: ALBUMIN 2.1 g/dL (3.5-5.0); BILIRUBIN,TOTAL 0.9 mg/dL (0.2-1.0); CREATININE 0.9 mg/dL (0.5-1.5); CRP QUANTITATIVE 7.1 mg/L (0.00-9.0); POTASSIUM 3.9 mmol/L (3.5-5.1); TOTAL PROTEIN, SERUM 5.9 g/dL (6.0-8.3)
[2020-08-19] MEDS: INSULIN HUMULIN R 100 UNIT/ML 3ML SQ SCH ×4 (06:40→21:00)
[2020-08-19] MEDS: DOXYCYCLINE 100MG+NS 250ML 250 ML IV SCH ×2 (06:40→17:30)
[2020-08-19 07:15] VITALS: BP 151/81
[2020-08-19] MEDS: THIAMINE HCL 100 MG/ML 2ML VIAL IM SCH (08:34)
[2020-08-19] MEDS: FAMOTIDINE 20MG VIAL IV SCH (08:34)
[2020-08-19] MEDS: DEXAMETHASONE SOD PHOSPHATE 4 MG/ML 1ML VIAL IVP SCH ×2 (08:50→21:21)
[2020-08-19] MEDS: ENOXAPARIN SODIUM 40 MG/0.4 ML SYRINGE SQ SCH ×2 (08:51→21:23)
[2020-08-19] MEDS: TAMSULOSIN HCL 0.4 MG CAP.ER.24H PO SCH (09:00)
[2020-08-19 11:15] VITALS: BP 121/74
[2020-08-19] MEDS: ZINC SULFATE 220 CAPSULE PO SCH (12:17)
[2020-08-19] MEDS: ASCORBIC ACID 500 MG TAB PO SCH (12:17)
[2020-08-19] MEDS: FOLIC ACID 1 MG TABLET PO SCH (12:18)
[2020-08-19] MEDS: LACTULOSE 20 GM/30 ML UDCUP PO PRN (12:19)
[2020-08-19] MEDS ORDERED: BISACODYL 10 MG SUPP.RECT RC PRN (12:30)
[2020-08-19 15:15] VITALS: BP 138/83
[2020-08-19 20:00] VITALS: BP 180/95
[2020-08-19] MEDS: ATORVASTATIN 10 MG TABLET PO SCH (21:20)
[2020-08-19] MEDS: OXYBUTYNIN 5 MG TAB.SR.24H PO SCH (21:21)
[2020-08-19] MEDS: LORAZEPAM 2 MG/ML 1 ML VIAL IVP PRN (21:21)
[2020-08-19 23:33] VITALS: BP 140/70
[2020-08-20 03:53] VITALS: BP 131/65
[2020-08-20] MEDS: DOXYCYCLINE 100MG+NS 250ML 250 ML IV SCH (05:21)
[2020-08-20 06:06] LABS: BASOPHILS % (AUTO) 0.2 % (0.0-5.0); HEMATOCRIT 47.8 % (42-54); LYMPHOCYTES % (AUTO) 2.2 % (21.0-51.0); MEAN CORPUSCULAR HEMOGLOBIN 28.7 pg (27.0-33.0); MEAN CORPUSCULAR HGB CONC 32.8 g/dL (32.0-36.0); MEAN CORPUSCULAR VOLUME 87.4 fL (79-99); MONOCYTES % (AUTO) 5.7 % (3.0-13.0); NEUTROPHILS % (AUTO) 90.8 % (40.0-77.0); PLATELET COUNT (AUTO) 129 K/uL (130-400); RED BLOOD CELL COUNT(AUTO) 5.47 MIL/uL (4.50-6.20); RED CELL DISTRIBUTION WIDTH 13.2 % (11.0-15.5); WHITE BLOOD COUNT (AUTO) 8.6 K/uL (4.8-10.8)
[2020-08-20 06:49] LABS: ALBUMIN 1.9 g/dL (3.5-5.0); BILIRUBIN,TOTAL 0.8 mg/dL (0.2-1.0); POTASSIUM 4.5 mmol/L (3.5-5.1); TOTAL PROTEIN, SERUM 5.6 g/dL (6.0-8.3)
[2020-08-20] MEDS: INSULIN HUMULIN R 100 UNIT/ML 3ML SQ SCH ×4 (07:30→21:00)
[2020-08-20 08:15] VITALS: BP 112/59
[2020-08-20 09:58] VITALS: BP 112/59
[2020-08-20] MEDS: ZINC SULFATE 220 CAPSULE PO SCH (10:36)
[2020-08-20] MEDS: FOLIC ACID 1 MG TABLET PO SCH (10:36)
[2020-08-20] MEDS: ASCORBIC ACID 500 MG TAB PO SCH (10:36)
[2020-08-20] MEDS: TAMSULOSIN HCL 0.4 MG CAP.ER.24H PO SCH (10:36)
[2020-08-20] MEDS: DEXAMETHASONE SOD PHOSPHATE 4 MG/ML 1ML VIAL IVP SCH (10:37)
[2020-08-20] MEDS: FAMOTIDINE 20MG VIAL IV SCH (10:37)
[2020-08-20] MEDS: THIAMINE HCL 100 MG/ML 2ML VIAL IM SCH (10:37)
[2020-08-20] MEDS: ENOXAPARIN SODIUM 40 MG/0.4 ML SYRINGE SQ SCH ×2 (10:38→20:16)
[2020-08-20 12:20] VITALS: BP 142/73
[2020-08-20 16:15] VITALS: BP 102/60
[2020-08-20] MEDS: CHLORDIAZEPOXIDE HCL 25 MG CAP PO PRN (20:14)
[2020-08-20] MEDS: ATORVASTATIN 10 MG TABLET PO SCH (20:14)
[2020-08-20] MEDS: DOXYCYCLINE HYCLATE 100 MG TABLET PO SCH (20:15)
[2020-08-20] MEDS: OXYBUTYNIN 5 MG TAB.SR.24H PO SCH (20:15)
[2020-08-20 20:24] VITALS: BP 128/78
[2020-08-21 00:26] VITALS: BP 128/78
[2020-08-21] MEDS: CHLORDIAZEPOXIDE HCL 25 MG CAP PO PRN (01:39)
[2020-08-21 03:57] VITALS: BP 123/72
[2020-08-21 05:30] LABS: BASOPHILS % (AUTO) 0.1 % (0.0-5.0); EOSINOPHILS % (AUTO) 0.1 % (0.0-8.0); HEMATOCRIT 49.6 % (42-54); LYMPHOCYTES % (AUTO) 3.5 % (21.0-51.0); MEAN CORPUSCULAR HEMOGLOBIN 28.7 pg (27.0-33.0); MEAN CORPUSCULAR HGB CONC 32.9 g/dL (32.0-36.0); MEAN CORPUSCULAR VOLUME 87.5 fL (79-99); MONOCYTES % (AUTO) 8.1 % (3.0-13.0); NEUTROPHILS % (AUTO) 87.2 % (40.0-77.0); PLATELET COUNT (AUTO) 111 K/uL (130-400); RED BLOOD CELL COUNT(AUTO) 5.67 MIL/uL (4.50-6.20); RED CELL DISTRIBUTION WIDTH 13.2 % (11.0-15.5); WHITE BLOOD COUNT (AUTO) 6.8 K/uL (4.8-10.8)
[2020-08-21 05:50] LABS: CREATININE 0.9 mg/dL (0.5-1.5); POTASSIUM 3.7 mmol/L (3.5-5.1)
[2020-08-21] MEDS: INSULIN HUMULIN R 100 UNIT/ML 3ML SQ SCH ×4 (06:58→20:37)
[2020-08-21 08:00] VITALS: BP 132/70
[2020-08-21] MEDS: ASCORBIC ACID 500 MG TAB PO SCH (08:49)
[2020-08-21] MEDS: DOXYCYCLINE HYCLATE 100 MG TABLET PO SCH ×2 (08:49→19:35)
[2020-08-21] MEDS: TAMSULOSIN HCL 0.4 MG CAP.ER.24H PO SCH (08:49)
[2020-08-21] MEDS: ZINC SULFATE 220 CAPSULE PO SCH (08:49)
[2020-08-21] MEDS: DEXAMETHASONE 4 MG TAB PO SCH (08:50)
[2020-08-21] MEDS: THIAMINE HCL 100 MG/ML 2ML VIAL IM SCH (08:51)
[2020-08-21] MEDS: FOLIC ACID 1 MG TABLET PO SCH (08:51)
[2020-08-21] MEDS: ENOXAPARIN SODIUM 40 MG/0.4 ML SYRINGE SQ SCH ×2 (08:52→19:36)
[2020-08-21] MEDS: FAMOTIDINE 20MG TAB PO SCH (11:13)
[2020-08-21 11:19] VITALS: BP 137/97
[2020-08-21] MEDS: OXYBUTYNIN 5 MG TAB.SR.24H PO SCH (19:35)
[2020-08-21] MEDS: ATORVASTATIN 10 MG TABLET PO SCH (19:35)
[2020-08-21 20:08] VITALS: BP 119/76
[2020-08-22] VITALS (7 sets, daily range): BP systolic 106–133; BP diastolic 63–82
[2020-08-22 04:58] LABS: BASOPHILS % (AUTO) 0.2 % (0.0-5.0); EOSINOPHILS % (AUTO) 0.4 % (0.0-8.0); LYMPHOCYTES % (AUTO) 4.2 % (21.0-51.0); MEAN CORPUSCULAR HEMOGLOBIN 28.2 pg (27.0-33.0); MEAN CORPUSCULAR HGB CONC 32.2 g/dL (32.0-36.0); MEAN CORPUSCULAR VOLUME 87.5 fL (79-99); NEUTROPHILS % (AUTO) 86.5 % (40.0-77.0); PLATELET COUNT (AUTO) 102 K/uL (130-400); RED CELL DISTRIBUTION WIDTH 13.2 % (11.0-15.5); WHITE BLOOD COUNT (AUTO) 4.7 K/uL (4.8-10.8)
[2020-08-22 05:20] LABS: BILIRUBIN,TOTAL 0.8 mg/dL (0.2-1.0); CREATININE 0.9 mg/dL (0.5-1.5); POTASSIUM 3.8 mmol/L (3.5-5.1); TOTAL PROTEIN, SERUM 5.4 g/dL (6.0-8.3)
[2020-08-22] MEDS: INSULIN HUMULIN R 100 UNIT/ML 3ML SQ SCH ×4 (05:56→21:04)
[2020-08-22] MEDS: ENOXAPARIN SODIUM 40 MG/0.4 ML SYRINGE SQ SCH ×2 (08:40→19:48)
[2020-08-22] MEDS: THIAMINE HCL 100 MG/ML 2ML VIAL IM SCH (08:41)
[2020-08-22] MEDS: DEXAMETHASONE 4 MG TAB PO SCH (08:41)
[2020-08-22] MEDS: DOXYCYCLINE HYCLATE 100 MG TABLET PO SCH ×2 (08:42→19:46)
[2020-08-22] MEDS: TAMSULOSIN HCL 0.4 MG CAP.ER.24H PO SCH (08:42)
[2020-08-22] MEDS: FOLIC ACID 1 MG TABLET PO SCH (08:42)
[2020-08-22] MEDS: ASCORBIC ACID 500 MG TAB PO SCH (08:42)
[2020-08-22] MEDS: ZINC SULFATE 220 CAPSULE PO SCH (08:42)
[2020-08-22] MEDS: FAMOTIDINE 20MG TAB PO SCH (08:42)
[2020-08-22] MEDS: OXYBUTYNIN 5 MG TAB.SR.24H PO SCH (19:46)
[2020-08-22] MEDS: ATORVASTATIN 10 MG TABLET PO SCH (19:47)
[2020-08-23 05:19] VITALS: BP 129/76
[2020-08-23] MEDS: INSULIN HUMULIN R 100 UNIT/ML 3ML SQ SCH ×3 (06:00→16:27)
[2020-08-23 06:15] LABS: BASOPHILS % (AUTO) 0.2 % (0.0-5.0); EOSINOPHILS % (AUTO) 0.4 % (0.0-8.0); HEMATOCRIT 52.9 % (42-54); LYMPHOCYTES % (AUTO) 4.3 % (21.0-51.0); MEAN CORPUSCULAR HEMOGLOBIN 28.5 pg (27.0-33.0); MEAN CORPUSCULAR HGB CONC 32.5 g/dL (32.0-36.0); MEAN CORPUSCULAR VOLUME 87.7 fL (79-99); MONOCYTES % (AUTO) 5.7 % (3.0-13.0); NEUTROPHILS % (AUTO) 88.3 % (40.0-77.0); PLATELET COUNT (AUTO) 97 K/uL (130-400); RED BLOOD CELL COUNT(AUTO) 6.03 MIL/uL (4.50-6.20); RED CELL DISTRIBUTION WIDTH 13.3 % (11.0-15.5); WHITE BLOOD COUNT (AUTO) 5.6 K/uL (4.8-10.8)
[2020-08-23 06:38] LABS: ALBUMIN 2.2 g/dL (3.5-5.0); BILIRUBIN,TOTAL 0.9 mg/dL (0.2-1.0); CREATININE 0.9 mg/dL (0.5-1.5); POTASSIUM 3.6 mmol/L (3.5-5.1)
[2020-08-23 08:23] VITALS: BP 146/83
[2020-08-23] MEDS: TAMSULOSIN HCL 0.4 MG CAP.ER.24H PO SCH (08:50)
[2020-08-23] MEDS: THIAMINE HCL 100 MG/ML 2ML VIAL IM SCH (08:51)
[2020-08-23] MEDS: DEXAMETHASONE 4 MG TAB PO SCH (08:51)
[2020-08-23] MEDS: ASCORBIC ACID 500 MG TAB PO SCH (08:51)
[2020-08-23] MEDS: DOXYCYCLINE HYCLATE 100 MG TABLET PO SCH (08:51)
[2020-08-23] MEDS: ZINC SULFATE 220 CAPSULE PO SCH (08:51)
[2020-08-23] MEDS: FOLIC ACID 1 MG TABLET PO SCH (08:51)
[2020-08-23] MEDS: ENOXAPARIN SODIUM 40 MG/0.4 ML SYRINGE SQ SCH (08:52)
[2020-08-23] MEDS: FAMOTIDINE 20MG TAB PO SCH (08:54)
[2020-08-23 11:22] VITALS: BP 117/75
[2020-08-23 16:21] VITALS: BP 105/63
== END 2020-08-23 16:50 | DRG 177 ==
LOC: EDH 14:43 → EDHIP 17:39 → 4BH 08-09 12:54
PROVIDERS: ADMIT Family Medicine; ATTEND Family Medicine
PROC: XW13325 Transfusion of Convalescent Plasma (Nonautologous) into Peripheral Vein, Percutaneous Approach, New Technology Group 5 (ICD-10-PCS; principal; 2020-08-08)
PROC: XW033E5 Introduction of Remdesivir Anti-infective into Peripheral Vein, Percutaneous Approach, New Technology Group 5 (ICD-10-PCS; 2020-08-11)
PROC: 5A0935A Assistance with Respiratory Ventilation, Less than 24 Consecutive Hours, High Flow/Velocity Cannula (ICD-10-PCS; 2020-08-12)
PROC: 5A0935A Assistance with Respiratory Ventilation, Less than 24 Consecutive Hours, High Flow/Velocity Cannula (ICD-10-PCS; 2020-08-22)
DX: U07.1 COVID-19 (principal); J12.82 Pneumonia due to coronavirus disease 2019; J96.01 Acute respiratory failure with hypoxia; G93.41 Metabolic encephalopathy; N17.9 Acute kidney failure, unspecified; E87.0 Hyperosmolality and hypernatremia; N40.0 Benign prostatic hyperplasia without lower urinary tract symptoms; Z66 Do not resuscitate; E11.65 Type 2 diabetes mellitus with hyperglycemia; N18.9 Chronic kidney disease, unspecified; D64.9 Anemia, unspecified; E11.22 Type 2 diabetes mellitus with diabetic chronic kidney disease; H54.61 Unqualified visual loss, right eye, normal vision left eye; E11.51 Type 2 diabetes mellitus with diabetic peripheral angiopathy without gangrene; E78.00 Pure hypercholesterolemia, unspecified; E78.5 Hyperlipidemia, unspecified; I12.9 Hypertensive chronic kidney disease with stage 1 through stage 4 chronic kidney disease, or unspecified chronic kidney disease; Z80.8 Family history of malignant neoplasm of other organs or systems; Z82.49 Family history of ischemic heart disease and other diseases of the circulatory system; Z90.79 Acquired absence of other genital organ(s); Z83.3 Family history of diabetes mellitus
CPT/HCPCS: 36415; 36600; 70450; 71045; 71250; 74018; 76770; 80048; 80053; 81001; 82140; 82550; 82728; 82803; 82948; 83605; 83615; 83735; 83874; 84100; 84132; 84145; 84436; 84443; 84480; 84484; 84550; 85025; 85027; 85378; 85610; 85730; 86140; 86850; 86900; 86901; 86927; 87040; 87088; 87426; 87804; 87880; 92610; 93005; 99291; A4344; G0378; J0456; J0696; J1100; J1650; J1815; J2060; J3411; J3475; J3480; J3490; J7030; J7050; J7070; J7120; J8540